=== PATIENT | male | born 1995 | race Caucasian/White ===

== ENCOUNTER 2019-10-09 11:43 | Day surgery (SDC) | payer MEDICAID ==
[~2019-10-09] VITALS: Ht 177.8 cm; Wt 69.5 kg
[~2019-10-09 11:43] MED LIST: PANT40TA25 PO; SODIUM CHLORIDE 0.9% 1,000 ML IV ONE; SODIUM CHLORIDE 0.9% 1,000 ML ONE
[2019-10-09] MEDS ORDERED: PROPOFOL 1% 20 ML VIAL IVP ONE (22:15)
[2019-10-09] MEDS ORDERED: LIDOCAINE 1% 10 ML VIAL ONE (22:15)
== END 2019-10-09 17:25 | disposition home or self-care (01) ==
LOC: SURGERY 11:43
PROVIDERS: ATTEND Internal Medicine Gastroenterology
DX: R10.84 Generalized abdominal pain (principal); R63.4 Abnormal weight loss; K29.50 Unspecified chronic gastritis without bleeding; I10 Essential (primary) hypertension; K21.9 Gastro-esophageal reflux disease without esophagitis; Z79.899 Other long term (current) drug therapy
CPT/HCPCS: 43239; 88305; 88312; 88313; C1769; J2704; J3490; J7030